=== PATIENT | male | born 1960 | race Two or more races ===

== ENCOUNTER 2016-05-26 18:41 | Emergency (ER) | payer SELFPAY ==
[~2016-05-26] VITALS: Ht 162.6 cm; Wt 72.6 kg
[2016-05-26 19:13] VITALS: BP 125/80
== END 2016-05-26 20:09 | disposition left against medical advice (07) ==
LOC: ER 18:46
DX: Z53.21 Procedure and treatment not carried out due to patient leaving prior to being seen by health care provider (principal)
CPT/HCPCS: A4606; Z7610